=== PATIENT | female | born 1985 | race Caucasian/White ===

== ENCOUNTER 2025-01-02 13:03 | Emergency (ER) | payer SELFPAY ==
[2025-01-02 13:20] VITALS: BP 161/112; PULSE 82; RESP 18; TEMP 37.1; O2SAT 98
[2025-01-02 13:36] LABS: Glucose Negative (Negative)
[2025-01-02 13:56] LABS: C & S Indicated? Yes; WBC >50 HPF (0-5)
--- NOTE | 2025-01-02 14:15 | DI.CT_ITS ---
Exam(s) CT ABDOMEN PELVIS WO EXAM: CT ABDOMEN PELVIS WO CLINICAL HISTORY: Lower abd pain, Dysuria Hematuria. TECHNIQUE: Imaging Protocol: Axial computed tomography images with coronal and sagittal reformatted images were created and reviewed. Oral: / no COMPARISON: CT RENAL COLIC WO CONTRAST from 02/14/2015 FINDINGS: Lung Bases: No acute findings. Liver: Normal density. No suspicious mass. Gallbladder and biliary tract: No radiodense calculus or biliary dilation. Pancreas: Normal density. No abnormal calcifications or inflammatory process. Spleen: Normal. Kidneys: Normal size, contour and axis. No radiodense stones. No obstructive uropathy. No suspicious masses seen. Adrenal glands: No masses seen. Lymph nodes: Within normal limits. Vasculature: Abdominal aorta non-dilated. Soft tissues: Unremarkable. Bladder: No wall thickening. No mass or calculi. There is some haziness in the surrounding fat which could indicate cystitis. Bowel: No obstruction or bowel wall thickening. The appendix is normal. Peritoneal cavity: No ascites. No focal collection. No mesenteric inflammatory response. Reproductive organs: Unremarkable. IUD noted within uterus. Bones: Degenerative changes of both hips as well as lower lumbar spine, advanced for the patient's age. IMPRESSION: Haziness of the perivesical fat could indicate cystitis. No gross wall thickening or evidence of calculi. The kidneys and ureters appear normal. RADIATION DOSE DELIVERED: Total DLP DATA REPOSITORY: All CT scans at this facility are submitted to the National Radiology Data Registry (NRDR) Dose Index Registry (DIR) with the [employer] (ACR). RADIATION OPTIMIZATION: All CT scans at this facility use at least one of these dose optimization techniques: automated exposure control; mA and/or kV adjustment per patient size (includes targeted exams where dose is matched to clinical indication); or iterative reconstruction.
--- NOTE | 2025-01-02 14:24 | ED.GENADUL_ITS ---
Discharge Plan Disposition Patient Disposition: Home Condition: Stable Discharge Details Clinical Impression: Acute hemorrhagic cystitis Primary Care Provider: Todd Lopez ED Provider: Bess Salgado Home Meds and New Rx's Prescriptions: New phenazopyridine [Pyridium] 100 mg tablet 100 mg PO TID PRN (Reason: UTI) Qty: 6 0RF Rx Instructions: Please take 1 tablet by mouth 3 times daily as needed for pain cephalexin 500 mg tablet 500 mg PO BID 10 Days Qty: 20 0RF Discontinued levofloxacin [Levaquin] 750 MG tablet 750 mg PO DAILY Qty: 4 0RF No Action ibuprofen 800 MG tablet 800 mg PO TID Qty: 90 phenazopyridine [Pyridium] 200 MG tablet 100 mg PO TID PRN PRNQty: 6 0RF methylphenidate HCl 20 mg tablet 20 mg PO TID Patient Comments: TAKE ONE TABLET BY MOUTH THREE TIMES A DAY FOR 28 DAYS Discharge Instructions Instructions: Urinary Tract Infection, Adult ED Additional Instructions: At this time it does appear you have a bladder infection also known as cystitis sometimes this can bleed. Please take the antibiotic twice daily with yogurt or probiotic as directed. No evidence of kidney stones at this time. Please take the Pyridium also as directed this will turn your urine bright orange and may stain your clothes. Follow up with primary care provider in 3-5 days if needed. Return to ED sooner if any worsening pain, fever, vomiting unable to keep your medications down or concerns. Increase oral fluids. Please take Tylenol or Ibuprofen with food every 4-6 hours as needed for pain and swelling. Referrals: Todd Lopez [Primary Care Provider, Medicine] - 1 week Referral Note: ER follow-up please call for an appointment HPI General Mode of arrival: ambulatory . Date/Time Provider Initiated Documentation: 01/02/25 13:05 . Limitations to Documentation: no limitations . Information obtained by: patient, family, RN notes reviewed and old records reviewed . HPI Narrative: 39-year-old female presents to the ER after being seen in urgent care with a chief complaint of bilateral lower abdominal pain which began on Thursday and associated with dysuria, hematuria. Denies any vomiting. Has been taking ibuprofen and cranberry juice. She is hypertensive upon arrival was seen at urgent care prior to arrival and noted to have blood in the urine and leukocytes. Does have trace ketones, moderate blood moderate leukocytes 5-10 RBCs and greater than 50 WBCs. Related Data Home Medications ?Medication ?Instructions ?Recorded ?Confirmed ibuprofen 800 mg tablet 800 mg PO TID #90 tab-caps 0 12/20/14 01/02/25 phenazopyridine 200 mg tablet 100 mg (1/2 x 200 mg) PO TID PRN 11/12/15 01/02/25 (Pyridium) PRN #6 tabs cephalexin 500 mg tablet 500 mg PO BID 10 days #20 ta bs 01/02/25 methylphenidate HCl 20 mg tablet 20 mg PO TID 01/02/25 01/02/25 phenazopyridine 100 mg tablet 100 mg PO TID PRN UTI 6 doses #6 01/02/25 (Pyridium) tabs Previous Rx's ?Medication ?Instructions ?Recorded phenazopyridine 200 mg tablet 100 mg (1/2 x 200 mg) PO TID PRN 11/12/15 (Pyridium) PRN #6 tabs cephalexin 500 mg tablet 500 mg PO BID 10 days #20 ta bs 01/02/25 phenazopyridine 100 mg tablet 100 mg PO TID PRN UTI 6 doses #6 01/02/25 (Pyridium) tabs Allergies Allergy/AdvReac Type Severity Reaction Status Date / Time No Known Allergies Allergy Unverified 01/02/25 13:23 General Stated Complaint: Urinary KELLIE: 3 Review of Systems All systems reviewed & are unremarkable except as noted in HPI and below Constitutional Constitutional: Reports as per HPI Gastrointestinal Gastrointestinal: Reports abdominal pain, Denies nausea and Denies vomiting Genitourinary Genitourinary: Reports as per HPI and Reports dysuria Exam Narrative Exam Narrative: Constitutional: Alert and oriented x3. Appears stated age. Normal body habitus. Head: Normocephalic, no trauma. Eyes: Pupils PERRL, Red reflex noted, EOM's intact. Eyelids symmetrical without lesions, discharge, or swelling. Chest: RRR, Normal S1, S2, distal pulses intact. Resp: Lungs clear to auscultation bilaterally, no wheezes, rales, or rhonchi. Abdomen: Extremely tender with palpation bilateral lower quadrants Musculoskeletal: Normal gait, Moves all 4 extremities without difficulty. Skin: No suspicious rashes or lesions. Capillary refill less than 2 sec. Neurologic: Cranial nerves II-XII intact. Alert and oriented x 3. Motor: No de ficits noted. Sensory: Intact bilaterally all 4 extremities. Hematologic/Lymphatic: No ecchymosis, no lymphadenopathy. Course Vital Signs Vital signs: Vital Signs Temperature 37.1 C 01/02/25 13:20 Pulse 82 01/02/25 13:20 Respiratory Rate 18 01/02/25 13:20 Blood Pressure 161/112 H 01/02/25 13:20 Pulse Oximetry 98 01/02/25 13:20 Temperature 37.1 C 01/02/25 13:20 Temperature Source Oral 01/02/25 13:20 Pulse 82 01/02/25 13:20 Respiratory Rate 18 01/02/25 13:20 Blood Pressure 161/112 H 01/02/25 13:20 Pulse Oximetry 98 01/02/25 13:20 Oxygen Delivery Method Room Air 01/02/25 13:20 Oxygen Flow Rate 0 01/02/25 13:20 Pain Level 8 01/02/25 13:20 Lab/Test Results Lab/Test Results: 01/02/25 13:20 Urine - Reflex from Ua Urine Culture - Pending Laboratory Tests Range/Units 01/02/25 13:20 Urine Color (Yellow) Yellow Urine Clarity (Clear) Cloudy Urine pH (5-8) 6.0 Ur Specific [place] (1.005-1.025) >= 1.030 H Urine Protein (Neg-Trace) mg/dL 100 H Urine Ketones (Negative) mg/dL Trace H Urine Blood (Negative) Moderate H Urine Nitrite (Negative) Negative Urine Bilirubin (Negative) Negative Urine Urobilinogen (Up to 0.2) mg/dL 1.0 H Ur Leukocyte Esterase (Negative) Moderate H Urine RBC (0-2) HPF 5-10 H Urine WBC (0-5) HPF >50 H Ur Epithelial Cells (Negative) HPF Few Urine Crystals (Negative) HPF Negative Urine Bacteria (Negative) HPF Moderate Urine Casts (Negative) LPF Negative Urine Mucus (Negative) Moderate Ur Culture Indicated? Yes Urine Glucose (Negative) mg/dL Negative Medical Decision Making 39-year-old female presents to the ER after being seen in urgent care with a chief complaint of bilateral lower abdominal pain which began on Thursday and associated with dysuria, hematuria. Denies any vomiting. Has been taking ibuprofen and cranberry juice. Differential diagnosis includes but not limited to kidney stone, hemorrhagic cystitis, UTI, pyelonephritis, diverticulitis, appendicitis, ectopic . Patient denies any possibility of due to tubal ligation and IUD, Workup ordered including CBC CMP urinalysis, CT abdomen pelvis without contrast, 4 mg of Zofran 2 mg of morphine. Will consider Toradol and tamsulosin if positive for kidney stone. Will also consider cephalexin for UTI. Will give a gram of ceftriaxone here IV piggyback. CT abdomen pelvis shows no evidence for renal calculi does show evidence for cystitis. Please see official report. Will give patient cephalexin, Toradol IV. Patient discharged with cephalexin and Pyridium instructed on strict return instructions and home care. Directed to follow-up with PCP. This text was generated using [employer] system, please disregard any oddities of phrase or misspellings. Imaging Data Radiologic Study: Imaging: CT Scan Radiologist's impression: COMPARISON: CT RENAL COLIC WO CONTRAST from 02/14/2015 FINDINGS: Lung Bases: No acute findings. Liver: Normal density. No suspicious mass. Gallbladder and biliary tract: No radiodense calculus or biliary dilation. Pancreas: Normal density. No abnormal calcifications or inflammatory process. Spleen: Normal. Kidneys: Normal size, contour and axis. No radiodense stones. No obstructive uropathy. No suspicious masses seen. Adrenal glands: No masses seen. Lymph nodes: Within normal limits. Vasculature: Abdominal aorta non-dilated. Soft tissues: Unremarkable. Bladder: No wall thickening. No mass or calculi. There is some haziness in the surrounding fat which could indicate cystitis. Bowel: No obstruction or bowel wall thickening. The appendix is normal. Peritoneal cavity: No ascites. No focal collection. No mesenteric inflammatory response. Reproductive organs: Unremarkable. IUD noted within uterus. Bones: Degenerative changes of both hips as well as lower lumbar spine, advanced for the patient's age. IMPRESSION: Haziness of the perivesical fat could indicate cystitis. No gross wall thickening or evidence of calculi. The kidneys and ureters appear normal. Lab Data Lab results reviewed: Yes I reviewed the patient's lab results. Labs: 01/02/25 13:20 Urine - Reflex from Ua Urine Culture - Pending Laboratory Tests Range/Units 01/02/25 01/02/25 13:20 13:43 WBC (4.4-10.8) 10^3/uL 13.46 H RBC (3.93-5.22) 10^6/uL 3.96 Hgb (11.2-15.7) g/dL 12.4 Hct (36.0-46.0) % 36.3 MCV (80-95) fL 92 MCH (27.0-33.0) pg 31.3 MCHC (32.0-36.0) % 34.2 RDW (11.7-14.6) % 12.6 Plt Count (130-400) 10^3/uL 256 MPV (8.0-11.0) fL 9.6 Immature Gran % % 0.4 Neutrophils % % 81.3 Lymphocytes % % 11.6 Monocytes % % 4.9 Eosinophils % % 1.3 Basophils % % 0.5 Nucleated RBC % (0.0-0.3) % 0.0 Absolute Neutrophils (1.2-6.7) 10^3/uL 10.94 H Absolute Lymphocytes (1.2-3.4) 10^3/uL 1.56 Absolute Monocytes (0.1-0.8) 10^3/uL 0.66 Absolute Eosinophils (0.0-0.7) 10^3/uL 0.17 Absolute Basophils (0.0-0.2) 10^3/uL 0.07 Sodium (136-145) mmol/L 143 Potassium (3.5-5.1) mmol/L 3.3 L Chloride (98-107) mmol/L 106 Carbon Dioxide (21.0-32.0) mmol/L 27.8 Anion Gap (3-11) mmol/L 9.2 BUN (7-18) mg/dL 8 Creatinine (0.55-1.02) mg/dL 0.6 Est GFR (CKD-EPI 2020) (mL/min/1.73m2) 116.30 Glucose (74-106) mg/dL 160 H Calcium (8.5-10.1) mg/dL 8.3 L Total Bilirubin (0.2-1.0) mg/dL 0.5 AST (15-37) U/L 16 ALT (14-59) U/L 21 Alkaline Phosphatase (46-116) U/L 91 Total Protein (6.4-8.2) g/dL 6.4 Albumin (3.4-5.0) g/dL 3.1 L Urine Color (Yellow) Yellow Urine Clarity (Clear) Cloudy Urine pH (5-8) 6.0 Ur Specific [place] (1.005-1.025) >= 1.030 H Urine Protein (Neg-Trace) mg/dL 100 H Urine Ketones (Negative) mg/dL Trace H Urine Blood (Negative) Moderate H Urine Nitrite (Negative) Negative Urine Bilirubin (Negative) Negative Urine Urobilinogen (Up to 0.2) mg/dL 1.0 H Ur Leukocyte Esterase (Negative) Moderate H Urine RBC (0-2) HPF 5-10 H Urine WBC (0-5) HPF >50 H Ur Epithelial Cells (Negative) HPF Few Urine Crystals (Negative) HPF Negative Urine Bacteria (Negative) HPF Moderate Urine Casts (Negative) LPF Negative Urine Mucus (Negative) Moderate Ur Culture Indicated? Yes Urine Glucose (Negative) mg/dL Negative PFSH All Active Problems (Updated 01/02/25 @ 14:26 by Bess Salgado NP) Acute hemorrhagic cystitis (Acute) Tubal ligation status (Acute) Surgical History Tonsillectomy and adenoidectomy AGE 21 section (~12/2012) Family History Mother No problems noted. Father No problems noted. Brother No problems noted. Grandfather Diabetes Grandfather Personal history of malignant neoplasm Grandmother No problems noted. Grandmother Personal history of malignant neoplasm LUNG Social History Smoking/Tobacco Use Status: Current-Occasional Smoking risk assessment performed?: Yes Drug use: Never
[2025-01-02 14:29] LABS: Abs Immature Grans 0.06 10^3/uL (0.0-0.06); HCT 36.3 % (36.0-46.0); HGB 12.4 g/dL (11.2-15.7); Immature Grans % 0.4 %; MCH 31.3 pg (27.0-33.0); MCHC 34.2 % (32.0-36.0); MCV 92 fL (80-95); MPV 9.6 fL (8.0-11.0); Platelet Count 256 10^3/uL (130-400); RBC 3.96 10^6/uL (3.93-5.22); RDW 12.6 % (11.7-14.6); RDW-SD 42.1 fL; WBC 13.46 10^3/uL (4.4-10.8)
[2025-01-02 14:47] LABS: ALT 21 U/L (14-59); AST 16 U/L (15-37); Albumin 3.1 g/dL (3.4-5.0); Alkaline Phosphatase 91 U/L (46-116); Anion Gap 9.2 mmol/L (3-11); BUN 8 mg/dL (7-18); Bilirubin, Total 0.5 mg/dL (0.2-1.0); CO2 27.8 mmol/L (21.0-32.0); Calcium 8.3 mg/dL (8.5-10.1); Chloride 106 mmol/L (98-107); Estimated GFR 116.30 (mL/min/1.73m2); Glucose 160 mg/dL (74-106); Potassium 3.3 mmol/L (3.5-5.1); Sodium 143 mmol/L (136-145); Total Protein 6.4 g/dL (6.4-8.2)
[2025-01-02] MEDS: MORPHine 10 MG/ML VIAL 2 MG IVP (15:32)
[2025-01-02] MEDS: cefTRIAXone 1 GM/50 ML BAG IVPB (15:33)
[2025-01-02] MEDS: Ondansetron 4 MG/2 ML VIAL IVP (15:33)
[2025-01-02] MEDS: Ketorolac 15 MG/ML VIAL IVP (16:17)
[2025-01-02 16:27] VITALS: BP 152/78; PULSE 70; RESP 16; O2SAT 99
== END 2025-01-02 16:39 | disposition home or self-care (01) ==
PROVIDERS: Emergency Provider Registered Nurse Emergency; PCP Family Medicine
DX: N30.01 Acute cystitis with hematuria (principal); Z98.51 Tubal ligation status; R10.30 Lower abdominal pain, unspecified; R30.0 Dysuria; R31.0 Gross hematuria
CPT/HCPCS: 80053; 87077; 96365; 96375; 99284; 74176; 81003; 81015; 85025; 87086; 87186; J0696; J1885; J2270; J2405

== ENCOUNTER 2025-01-02 18:41 | Outpatient (REF) | payer SELFPAY ==
[2025-01-02 21:01] LABS: Glucose Negative (Negative)
[2025-01-02 21:23] LABS: C & S Indicated? Yes
[2025-01-02 21:24] LABS: RBC >50 HPF (0-2); WBC >50 HPF (0-5)
== END 2025-01-02 18:42 | disposition home or self-care (01) ==
LOC: LBN 18:41
PROVIDERS: PCP Family Medicine; Visit Provider Nurse Practitioner Family
DX: R39.9 Unspecified symptoms and signs involving the genitourinary system (principal)
CPT/HCPCS: 87077; 81003; 81015; 87086